=== PATIENT | male | born 1960 | race Caucasian/White ===

== ENCOUNTER 2020-12-12 08:40 | Outpatient (CLI) | payer BC | END 2020-12-12 08:41 | disposition home or self-care (01) | LOC: CSHCT 08:40 | PROVIDERS: ATTEND Internal Medicine Gastroenterology | DX: R63.4 Abnormal weight loss (principal); K57.30 Diverticulosis of large intestine without perforation or abscess without bleeding | CPT/HCPCS: 71260; 74177; 82565 ==

== ENCOUNTER 2024-10-08 08:34 | Outpatient (CLI) | payer BC | END 2024-10-08 08:35 | disposition home or self-care (01) | LOC: CSHMRI 08:34 | PROVIDERS: ATTEND Orthopaedic Surgery | DX: M54.16 Radiculopathy, lumbar region (principal) | CPT/HCPCS: 72148 ==